=== PATIENT | female | born 1940 | race Caucasian/White ===

== ENCOUNTER → 2020-03-24 08:48 | Outpatient (CLI) | payer MEDICARE, SELFPAY ==
--- NOTE | ~2020-03-24 | CT_ITS ---
EXAMINATION: CT lumbar spine wo [facility] EXAM DATE: 03/24/2020 09:34 INDICATION: Thoracic, back pain. TECHNIQUE: Spiral CT of the lumbar spine was performed without contrast. Axial, coronal and sagittal images were reviewed. The dose-length product (DLP) for this examination was 952.88 mGy-cm. The e xposure was tailored according to patient size (auto mA exposure control), and iterative reconstructi on (ASIR) was used as additional dose reduction technique. Correlation made to lumbar x-ray from 2006 . FINDINGS: There is moderate to severe disc disease from L1 through L5. Mild diffuse loss of lumbar ve rtebral body heights without acute fracture line. There is 3 mm retrolisthesis L5 on S1. No spondylol ysis. No endplate erosive change. Mild lumbar levoscoliosis. No evidence of sacral insufficiency frac ture. Gastroesophageal surgical changes. Level by level evaluation: T12-L1: There is a mild diffuse disc bulge. Facet arthropathy: Moderate bilateral. Neural foraminal stenosis: Mild bilateral. Central canal stenosis: Minimal. L1-L2: There is a mild to moderate diffuse disc bulge. Facet arthropathy: Moderate. Neural foraminal stenosis: Mild bilateral. Central canal stenosis: Mild. L2-L3: There is a mild to moderate diffuse disc bulge. Facet arthropathy: Moderate right, mild to moderate left. Neural foraminal stenosis: Mild to moderate right, mild left. Central canal stenosis: Mild. L3-L4: There is a moderate diffuse disc bulge. Facet arthropathy: Moderate bilateral. Neural foraminal stenosis: Moderate right, mild to moderate left. Central canal stenosis: Mild to moderate. L4-L5: There is a moderate to large diffuse disc bulge. Facet arthropathy: Severe. Neural foraminal stenosis: Severe left, moderate to severe right. Central canal stenosis: Moderate to severe. L5-S1: There is a moderate diffuse disc bulge. Facet arthropathy: Severe right, moderate left. Neural foraminal stenosis: Severe left, mild to moderate right. Central canal stenosis: Mild. IMPRESSION: 1. Advanced lumbar spondylosis with significant left neural foraminal stenosis L4-5 and L5-S1. 2. Mild lumbar levoscoliosis. Reviewed, dictated and finalized at location A.
--- NOTE | ~2020-03-24 | CT_ITS ---
EXAMINATION: CT thoracic spine wo con EXAM DATE: 03/24/2020 09:33 INDICATION: Low back pain, thoracic back pain. No known recent injury. TECHNIQUE: Spiral CT thoracic spine wo con was performed without contrast. Axial, coronal and sagit corey images were reviewed. The dose-length product (DLP) for this examination was 1000.19 mGy-cm. Th e exposure was tailored according to patient size (auto mA exposure control), and iterative reconstru ction (ASIR) was used as additional dose reduction technique. There is no prior study for comparison . FINDINGS: There are no acute fractures identified. The vertebral bodies are aligned in the AP dimensi on. There is mild to moderate lower thoracic disc disease, mild mid and upper thoracic disc diseas e. The vertebral body heights are maintained. There is a spine stimulator device with lead tips in th e epidural space at the the T7 level. There is moderate bilateral facet arthropathy at T10-11 and T11-T12, otherwise mild thoracic facet ar thropathy. There is moderate bilateral neural foraminal stenosis at T4-5. There is moderate to severe bilateral neural foraminal stenosis at T10-11, moderate on the left at T11-12. Otherwise relatively mild neural foraminal stenosis. There is cardiomegaly. Dual lead pacemaker/AICD device. Mildly aneurysmal ascending aorta at 4.5 cm. The main, central pulmonary arteries are dilated which can indicate elevated pulmonary arterial press ure, pulmonary arterial hypertension. Left upper lobe granuloma. IMPRESSION: 1. Thoracic spondylosis with neural foramen most narrowed at T10-11 and on the left at T11-12. 2. Otherwise overall mild to moderate thoracic spondylosis. 3. Cardiomegaly. Dilated pulmonary arteries. 4. Mildly aneurysmal ascending aorta. Reviewed, dictated and finalized at location A.
== END ==
PROVIDERS: Visit Provider Nurse Practitioner Family
DX: M47.896 Other spondylosis, lumbar region (principal); M47.894 Other spondylosis, thoracic region
CPT/HCPCS: 72128; 72131